=== PATIENT | female | born 1955 | race Caucasian/White ===

== ENCOUNTER 2020-11-14 11:39 | Outpatient (CLI) | payer BC ==
[2020-11-14 12:43] LABS: Hemoglobin 13.6 g/dL (12.0-15.5); Mean Corpuscular HGB CONC 32.7 g/dL (32.0-36.0); Mean Corpuscular Hemoglobin 27.6 pg (27.0-33.0); Mean Corpuscular Volume 84.4 fl (81.6-98.3); Platelet Count 215 10x3/uL (150-450); RBC Distribution Width 13.7 % (11.5-14.5); Red Blood Cell (RBC) Count 4.93 10x6/uL (3.90-5.03); White Blood Cell (WBC) Count 5.8 10x3/uL (3.5-10.5)
[2020-11-14 12:58] LABS: Anion Gap 13 mmol/L (10-20); BUN (Urea Nitrogen) 13 mg/dL (9.8-20.1); Calc. Creatinine Clearance 0 mL/min (70-130); Carbon Dioxide 23 mmol/L (23-31); Chloride 109 mmol/L (98-107); Potassium 3.9 mmol/L (3.5-5.1); Sodium 141 mmol/L (136-145)
[2020-11-14 12:59] LABS: Calcium 9.2 mg/dL (7.8-10.44); Glucose 104 mg/dL (80-115)
[2020-11-15 01:13] LABS: SARS-CoV-2 PCR by NAA Not Detected (NotDetected)
== END 2020-11-14 11:40 | disposition home or self-care (01) ==
LOC: CSHLAB 11:39
PROVIDERS: ATTEND Surgery
DX: Z01.818 Encounter for other preprocedural examination (principal); Z20.822 Contact with and (suspected) exposure to COVID-19
CPT/HCPCS: 80048; 85027; 93005; 93010; U0003; U0005

== ENCOUNTER 2020-11-17 05:52 | Day surgery (SDC) | payer BC ==
[2020-11-15 15:05] VITALS: BMI 40.4
[2020-11-17] MEDS ORDERED: Lidocaine 1% MPF 2 ML VIAL ONE (06:41)
[2020-11-17] MEDS ORDERED: Bupivacaine PF 0.5% 30 ML VIAL ONE (06:56)
[2020-11-17] MEDS ORDERED: EPINEPHrine 1 MG/ML AMP ONE (06:58)
[2020-11-17] MEDS ORDERED: Midazolam HCl 2 mg/2 ml Vial ONE ×2 (07:06→07:28)
[2020-11-17] MEDS ORDERED: Bicitra 30 ML UDCUP ONE (07:07)
[2020-11-17] MEDS ORDERED: Fentanyl 100 MCG/2 ML VIAL ONE (07:28)
[2020-11-17] MEDS ORDERED: PROPOFOL 20 ML ONE (07:28)
[2020-11-17] MEDS ORDERED: Lidocaine 1% PF 5 ML VIAL ONE (07:29)
[2020-11-17] MEDS ORDERED: Ondansetron PF 4 MG/2 ML Vial ONE (07:29)
[2020-11-17] MEDS ORDERED: Glycopyrrolate 0.2 MG/ML 5 ML SYRINGE ONE (07:29)
[2020-11-17] MEDS ORDERED: Dexamethasone 4 mg/ml Vial ONE (07:29)
[2020-11-17] MEDS ORDERED: HYDROcodone/Acetaminophen 5/325 mg Tablet PO PRN (08:11)
[2020-11-17] MEDS ORDERED: Ketorolac Tromethamine 30 MG/ML VIAL ONE (08:27)
== END 2020-11-17 09:50 | disposition home or self-care (01) ==
LOC: CSHSDC 05:52
PROVIDERS: ATTEND Surgery
PROC: 0WQF0ZZ Repair Abdominal Wall, Open Approach (ICD-10-PCS; principal; 2020-11-17)
DX: K42.9 Umbilical hernia without obstruction or gangrene (principal); I10 Essential (primary) hypertension; K21.9 Gastro-esophageal reflux disease without esophagitis; Z79.899 Other long term (current) drug therapy; Z87.891 Personal history of nicotine dependence
CPT/HCPCS: J0171; J0690; J1100; J1885; J2250; J2405; J2704; J3010; S0020